=== PATIENT | female | born 1980 | race Caucasian/White ===

== ENCOUNTER 2020-01-13 00:13 | Emergency (ER) | payer MEDICAID ==
[~2020-01-13] VITALS: Ht 167.6 cm; Wt 90.0 kg
[2020-01-13] MEDS ORDERED: ondansetron 4mg rapidly disintigrating tab PO ONE (00:55)
[2020-01-13] MEDS ORDERED: ketorolac tromethamine 15mg/ml inj. IM ONE (00:55)
[2020-01-13] MEDS ORDERED: cyclobenzaprine 10mg tablet PO ONE (00:55)
[2020-01-13] MEDS ORDERED: pantoprazole 40mg Tablet.DR PO SCH (00:55)
[2020-01-13] MEDS ORDERED: PANT-47 PO (01:20)
[2020-01-13] MEDS ORDERED: CYCL-1 PO (01:20)
[2020-01-13] MEDS ORDERED: ONDA8TAB13 PO (01:20)
[2020-01-13 01:35] VITALS: BP 141/83
== END 2020-01-13 01:45 | disposition home or self-care (01) ==
LOC: ER 00:14
DX: M54.6 Pain in thoracic spine (principal); R11.0 Nausea; F17.200 Nicotine dependence, unspecified, uncomplicated; Z72.89 Other problems related to lifestyle; Z79.899 Other long term (current) drug therapy; W50.2XXA Accidental twist by another person, initial encounter; Y93.89 Activity, other specified; Y92.89 Other specified places as the place of occurrence of the external cause; Y99.8 Other external cause status
CPT/HCPCS: 96372; 99284; J1885

== ENCOUNTER 2020-01-21 17:57 | Emergency (ER) | payer MEDICAID ==
[~2020-01-21] VITALS: Ht 167.6 cm; Wt 101.8 kg
[~2020-01-21 17:57] MED LIST: CYCL-1 PO; ONDA8TAB13 PO; PANT-47 PO
[2020-01-21 19:28] LABS: ALANINE AMINOTRANSFERASE 19 U/L (12-78); ALBUMIN 3.6 G/DL (3.4-5.0); ALKALINE PHOSPHATASE 82 IU/L (46-116); ANION GAP 10 (8-16); ASPARTATE AMINO TRANSFERASE 12 U/L (10-37); BILIRUBIN,TOTAL 0.2 MG/DL (0.1-1.0); BLOOD UREA NITROGEN 10 MG/DL (7-18); CALCIUM 8.8 MG/DL (8.5-10.1); CHLORIDE 105 MMOL/L (99-107); CREATININE 0.77 MG/DL (0.40-0.90); GLUCOSE 95 MG/DL (70-104); POTASSIUM 3.8 MMOL/L (3.5-5.1); SODIUM 141 MMOL/L (135-145); TOTAL PROTEIN 7.3 G/DL (6.4-8.2); eGFR 84 ML/MIN
[2020-01-21 19:42] LABS: ETHANOL < 0.010 GM/DL (0.0-0.010)
--- NOTE | 2020-01-21 19:48 | NUR ---
Pt brought to room from er.
[2020-01-21 20:21] LABS: BASOPHILS # (AUTO) 0.1 X10'3 (0-0.2); BASOPHILS % (AUTO) 0.7 % (0-1); EOSINOPHILS # (AUTO) 0.3 X10'3 (0-0.9); EOSINOPHILS % (AUTO) 2.6 % (0-6); HEMATOCRIT 41.7 % (35.0-45.0); HEMOGLOBIN 14.4 g/dl (12.0-16.0); LYMPHOCYTES # (AUTO) 3.6 X10'3 (1.1-4.8); LYMPHOCYTES % (AUTO) 34.3 % (21-51); MEAN CORPUSCULAR HEMOGLOBIN 31.5 PG (27.0-31.0); MEAN CORPUSCULAR HGB CONC 34.6 g/dL (33.0-36.5); MEAN PLATELET VOLUME 8.8 FL (7.4-10.4); MONOCYTES # (AUTO) 0.6 X10'3 (0-0.9); MONOCYTES % (AUTO) 5.6 % (2-12); NEUTROPHILS # (AUTO) 5.9 X10'3 (1.8-7.7); NEUTROPHILS % (AUTO) 56.8 % (42-75); PLATELET COUNT 258 X10'3 (140-440); RED BLOOD COUNT 4.58 X10'6 (4.20-5.60); RED CELL DISTRIBUTION WIDTH 13.2 % (11.5-14.5); WHITE BLOOD COUNT 10.3 X10'3 (4.5-11.0)
--- NOTE | 2020-01-21 20:56 | NUR ---
Pt resting quietly, respirations normal, no s/s of distress.
--- NOTE | 2020-01-21 22:00 | NUR ---
Pt resting quietly, respirations normal, no s/s of distress.
--- NOTE | 2020-01-21 23:00 | NUR ---
Pt resting quietly, respirations normal, no s/s of distress.
--- NOTE | 2020-01-21 23:48 | NUR ---
Pt resting quietly, respirations normal, no s/s of distress.
--- NOTE | 2020-01-22 01:27 | NUR ---
Pt resting quietly, respirations normal, no s/s of distress.
--- NOTE | 2020-01-22 03:00 | NUR ---
Pt resting quietly, respirations normal, no s/s of distress.
--- NOTE | 2020-01-22 04:10 | NUR ---
Pt resting quietly, respirations normal, no s/s of distress.
[2020-01-22 06:02] LABS: CLARITY,URINE CLOUDY (Clear); COLOR,URINE YELLOW (Yellow); GLUCOSE, URINE NEGATIVE (Neg); KETONES,URINE NEGATIVE (Neg); LEUKOCYTE ESTERASE ,URINE LARGE (Neg); NITRITES, URINE POSITIVE (Neg); OCCULT BLOOD,URINE TRACE-INTACT (Neg); PH,URINE 6.5 (4.8-8.0); PROTEIN,URINE NEGATIVE (Neg); URINE HCG NEGATIVE (NEG); UROBILINOGEN,URINE 0.2 E.U/dL (0.2-1.0)
[2020-01-22 06:05] LABS: UA COLLECTION TYPE CLN CATCH MIDSTREAM
[2020-01-22 06:08] LABS: BACTERIA,URINE 4+ /HPF (Neg); MUCUS STRANDS NONE SEEN /LPF (Neg); RBC,URINE 0-2 /HPF (0-2); SQUAMOUS EPITHELIAL CELL,UR FEW /LPF (FEW); WBC CLUMPS,URINE MODERATE /HPF (NEGATIVE); WBC,URINE TNTC /HPF (0-4)
[2020-01-22 06:26] LABS: URINE AMPHETAMINE SCREEN POSITIVE (Neg); URINE BARBITUATE SCREEN NEGATIVE (Neg); URINE BENZODIAZEPINES SCREEN POSITIVE (Neg); URINE CANNABINOID SCREEN POSITIVE (Neg); URINE COCAINE SCREEN NEGATIVE (Neg); URINE METHADONE SCREEN NEGATIVE (Neg); URINE OPIATE SCREEN NEGATIVE (Neg); URINE PHENCYCLIDINE SCREEN NEGATIVE (Neg)
--- NOTE | 2020-01-22 07:00 | NUR ---
PACKET SENT TO [facility] OFFICE.
[2020-01-22] MEDS ORDERED: nicotine 21mg patch - 24 hr TD SCH (08:00)
--- NOTE | 2020-01-22 10:09 | NUR ---
Patient requested her nicotin patch at 930 am. Patient is alert and oriented to person, place, time.
[2020-01-22] MEDS ORDERED: NITR100C6 PO (11:34)
[2020-01-22] MEDS ORDERED: azithromycin 250mg tablet PO ONE (11:35)
[2020-01-22] MEDS ORDERED: CefTRIAXone 250MG IM Kit w/LIDOcaine IM ONE (11:35)
--- NOTE | 2020-01-22 11:49 | NUR ---
CHECKED WITH LAB, LAB HAS ENOUGH URINE TO RUN MORE TESTS
--- NOTE | 2020-01-22 11:59 | NUR ---
PATIENT AWARE THAT SHE HAS BEEN TREATED FOR STD. PATIENT VERBALIZED THAT SHE HAS BEEN TREATED FOR STD AND HAS A UTI.PATIENT VERBALIZED HOW AND WHEN TO TAKE MACROBID FOR HER UTI.
--- NOTE | 2020-01-22 12:04 | NUR ---
UA positive for UTI. Patient was given Rocephin i.m. injection and Zithromax 1000mg po x1. Educated patient to all side-effects of medications.
--- NOTE | 2020-01-22 12:05 | NUR ---
CALLED [facility]. PATIENT WILL WAIT AT MAIN ENTRANCE TO HOSPITAL FOR [facility]IDE.
--- NOTE | 2020-01-22 12:06 | NUR ---
Patient dc with all follow up instructions.
[2020-01-22 12:14] VITALS: BP 154/98
== END 2020-01-22 12:10 | disposition home or self-care (01) ==
LOC: ER 17:58
DX: R45.851 Suicidal ideations (principal); F10.10 Alcohol abuse, uncomplicated; F15.10 Other stimulant abuse, uncomplicated; F12.10 Cannabis abuse, uncomplicated; Z72.89 Other problems related to lifestyle; Z79.899 Other long term (current) drug therapy; Y90.0 Blood alcohol level of less than 20 mg/100 ml
CPT/HCPCS: 36415; 80053; 80305; 80320; 81001; 81025; 84443; 85025; 87491; 87591; 96372; 99285; J0696